=== PATIENT | female | born 1945 | race Caucasian/White ===

== ENCOUNTER 2018-12-28 10:45 | Inpatient (IN) | payer MEDICARE, BC, MEDICAID | END 2019-01-02 12:35 | disposition short-term general hospital (02) | LOC: PCU 3S 12-30 13:40 → ER 10:45 → ED HOLD 12:14 → PCU 3S 15:25 | DX: A41.9 Sepsis, unspecified organism (principal); J18.9 Pneumonia, unspecified organism; J96.01 Acute respiratory failure with hypoxia ==